=== PATIENT | female | born 1945 | race Caucasian/White ===

== ENCOUNTER 2024-07-13 11:33 | Emergency (ER) | payer MEDICARE, SELFPAY ==
[2024-07-13 11:35] VITALS: BP 131/53; PULSE 82; RESP 18; TEMP 36.5; O2SAT 96
[2024-07-13 11:37] VITALS: BMI 26.2
--- NOTE | 2024-07-13 11:49 | EKG12_ITS ---
Test Reason : SYNCOPE Blood Pressure : */* mmHG Vent. Rate : 74 BPM Atrial Rate : 74 BPM P-R Int : 184 ms QRS Dur : 106 ms QT Int : 404 ms P-R-T Axes : 22 -5 38 degrees QTcB Int : 448 ms Normal sinus rhythm Incomplete right bundle branch block Septal infarct , age undetermined ST & T wave abnormality, consider anterior ischemia Abnormal ECG Confirmed by REUBEN TEJEDA, ADRIEN ([id number]), design editor CHARANJIT URBAN ([id number]) on 07/18/2024 9:01:40 AM Referred By: ALEC Confirmed By: ADRIEN ALEXIS MD
--- NOTE | 2024-07-13 11:49 | EX.ED.DYSGE1 ---
HPI History of Present Illness Chief Complaint: Dizziness Detail of Chief Complaint: Dizziness and near syncope Informant: patient Narrative Narrative: Patient presents to the emergency department with an episode of dizziness and near syncope that occurred this morning. Patient states that she had been shopping with family members for several hours. She had just gotten to a new story been standing for about 10 minutes when she started feeling poorly. Describes feeling sweaty and feeling like her vision became cloudy. She felt like she was in a pass out but did not. She has not had episodes like this before. She denies recent illness. She denies chest pain or palpitations or racing heart. Patient feels markedly improved on arrival to the emergency department. [facility] Medical History (Updated 07/13/24 @ 14:[address] uRbina Johnson, DO) Breast cancer Home Medications ?Medication ?Instructions ?Recorded ?Last Taken ?Type albuterol sulfate 90 mcg/actuation 1 puff inhalation Q4H PRN 07/13/24 Unknown History aerosol inhaler shortness of breath or wheezing levothyroxine 112 mcg tablet 112 mcg PO MOTUWETHFRSA 07/13/24 07/13/24 History loratadine 10 mg tablet 10 mg PO DAILY PRN allergy symptoms 07/13/24 Unknown History (Allerclear) losartan 100 1 tab PO DAILY 07/13/24 07/12/24 History mg-hydrochlorothiazide 25 mg tablet vitamins A,C,E-pumh-tvnblz 4,296 1 cap PO BID 07/13/24 07/12/24 History mcg-226 mg-90 mg capsule (PreserVision AREDS) Allergy/AdvReac Type Severity Reaction Status Date / Time Sulfa (Sulfonamide Allergy Vomiting Verified 07/13/24 11:47 Antibiotics) Surgical History (Updated 07/13/24 @ 11:46 by Marilu John) History of appendectomy History of lumpectomy Social History Smoking Status: Former smoker ROS ROS ED Review of Systems ROS Unobtainable: other Constitutional Constitutional ED: Reports lethargy and other Details: Diaphoresis ; Denies chills, fever(s), sweats or weight loss Eyes Eyes: Denies blurry vision, change in vision or diplopia ENT ENT ED: Denies rhinorrhea or sore throat Cardiovascular Cardiovascular: Denies chest pain, orthopnea or racing heartbeat Respiratory/Chest Respiratory/Chest: Denies cough, dyspnea, dyspnea on exertion, orthopnea or sputum Gastrointestinal Gastrointestinal: Denies abdominal pain, diarrhea, nausea or vomiting Genitourinary Genitourinary ED: Denies dysuria, hematuria or urinary frequency Musculoskeletal Musculoskeletal: Denies arthralgias, back pain, myalgias or neck pain Integumentary Denies abscess, Abrasions or rash Neurologic Neurologic: Reports other Details: Dizziness, near syncope ; Denies headache(s) or weakness Psychiatric Psychiatric: Denies anxiety, depression or suicidal thoughts Endocrine Endocrinology: Denies polydipsia, polyphagia or polyuria Hematologic/Lymphatic Hematologic/Lymphatic: Denies easy bleeding, easy bruising or lymphadenopathy Allergic/Immunologic Allergic/Immunologic ED: Denies mouth swelling, tongue swelling or urticaria EXAM Physical Exam Const Vital Signs: 07/13/24 11:35 07/13/24 11:56 07/13/24 13:34 Temperature 97.7 F L Temperature Source Oral Pulse Rate 82 66 Pulse Rate [Lying] 74 Pulse Rate [Sitting (for 1 minute prior to obtaining)] 76 Pulse Rate [Standing (for 1 minute prior to obtaining)] 85 Respiratory Rate 18 15 Blood Pressure 131/53 H 162/54 H Blood Pressure [Lying] 147/55 H Blood Pressure [Sitting (for 1 minute prior to obtaining)] 136/59 H Blood Pressure [Standing (for 1 minute prior to obtaining)] 146/64 H Blood Pressure Mean 79 90 Blood Pressure Mean [Lying] 85 Blood Pressure Mean [Sitting (for 1 minute prior to obtaining)] 84 Blood Pressure Mean [Standing (for 1 minute prior to obtaining)] 91 Pulse Ox 96 97 Oxygen Delivery Method Room Air Room Air Positive well nourished and well developed General Appearance ED: well developed and NAD HEENT Reports TM's clear and moist mucous membranes normocephalic and atraumatic; Negative for trauma or tenderness Tympanic Membrane ED: Yes TM's clear Eyes PERRL and EOMs intact bilaterally General Eye ED: Negative for pale conjunctiva or scleral icterus Neck no lymphadenopathy, supple and no JVD General: Negative for tenderness Chest Wall inspection of chest normal and palpation of chest normal Chest: Negative for tenderness Resp normal respiratory effort and clear to auscultation bilaterally Effort and Inspection: Negative for respiratory distress or pain with movement Auscultation: Negative for rhonchi, wheezes or diminished lung sounds Cardio regular rate, regular rhythm, S1 normal heart sound, S2 normal heart sound and no murmurs Peripheral Pulses: pulses 2+ throughout GI normal to inspection, nondistended, normoactive bowel sounds, soft to palpation, non-tender, non-distended and no masses Back/Spine no CVA tenderness and no thoracic nor lumbar tenderness Extremity normal to inspection General Extremety ED: Negative for edema General Extremity: Negative for edema Neuro oriented x3, CN's II-XII intact bilaterally, no sensory deficits noted and gait normal Neuro Narrative: No focal deficits. No ataxia on exam. Sensorium / Orientation: awake, alert, oriented to person, oriented to place and oriented to time Motor Exam: strength 5/5 throughout and strength abnormal Psych mental status grossly normal Skin no rashes or lesions noted and no wounds MDM MDM MDM Narrative Medical decision making narrative: Patient presents with dizziness as well as diaphoresis and near syncope. Clinically looks well at this time. No prior episodes. In the differential would be cardiac dysrhythmia versus vasovagal near syncope or other etiology. IV line established. CBC with differential and a 10.0 with hemoglobin 13 and platelet count of 253. Chemistries unremarkable. First troponin was 6. Delta troponin was 8. Orthostatics were negative. At this point I suspect likely vasovagal near syncope. Patient will be discharged to home. Advised to follow-up with primary care physician 3 to 5 days. Lab Data Attestation: I reviewed the patient's lab results. Labs: Laboratory Results - last 24 hr 07/13/24 07/13/24 07/13/24 11:37 11:55 14:00 WBC 10.0 RBC 4.64 Hgb 13.0 Hct 39.3 MCV 84.7 MCH 28.0 MCHC 33.1 RDW Std Deviation 43.4 RDW Coeff of [place] 14.0 Plt Count 253 MPV 9.5 Immature Gran % (Auto) 0.500 Neut % (Auto) 70.1 H Lymph % (Auto) 19.7 [place] % (Auto) 5.5 Eos % (Auto) 3.6 Baso % (Auto) 0.6 Absolute Neuts (auto) 7.0 Absolute Lymphs (auto) 1.97 Nucleated RBC % 0 Sodium 136 Potassium 3.6 Chloride 97 L Carbon Dioxide 24.9 Anion Gap 14 BUN 17 Creatinine 1.10 Estim Creat Clear Calc 39.01 L Est GFR (MDRD) Non-Af 51 L BUN/Creatinine Ratio 15.5 Glucose 173 H Calcium 9.6 Troponin T High Sens 6 Troponin T Hi Sens 2 Hr 8 EKG Initial EKG: Attestation: I personally reviewed and interpreted this EKG as follows: Comments: Sinus rhythm with ventricular rate of [address] changes Discharge Plan Triage Chief Complaint: Dizziness ED Provider: Rubina Johnson Dx/Rx/DC Orders Clinical Impression: Near syncope Instructions: ED Near-Fainting, Uncertain Cause, ED Near-Fainting- Vagal Reaction Prescriptions: No Action albuterol sulfate 90 mcg/actuation HFA aerosol inhaler 1 puff INHALATION Q4H PRN (Reason: shortness of breath or wheezing) levothyroxine 112 mcg tablet 112 mcg PO MOTUWETHFRSA losartan-hydrochlorothiazide 100-25 mg tablet 1 tab PO DAILY PreserVision AREDS 4,296 mcg-226 mg-90 mg capsule 1 cap PO BID loratadine [Allerclear] 10 mg tablet 10 mg PO DAILY PRN (Reason: allergy symptoms) Primary Care Provider: Ifeoma Harris Referrals: Ifeoma Harris MD [Primary Care Provider] - 3-5 Days Print Language: Mohawk Disposition Disposition: Home, Self Care
[2024-07-13 11:56] VITALS: BP 136/59; BP 146/64; BP 147/55; PULSE 74; PULSE 76; PULSE 85
[2024-07-13] MEDS: 0.9% Normal Saline (1000mL) 1,000 ML 1000 ML IV (12:00)
[2024-07-13 12:19] LABS: Absolute Lymphocyte Count 1.97 X10^3/uL (0.83-4.51); Basophil# 0.06 X10^3/uL; Basophil% 0.6 % (0-1); Eosinophil# 0.36 X10^3/uL; Eosinophils% 3.6 % (0-5); Hematocrit 39.3 % (37-47); Lymphocyte # 1.97 X10^3/ul (0.83-4.51); Lymphocyte % 19.7 % (19-41); Mean Corp Hgb Conc 33.1 g/dL (32-36); Mean Corpuscular Volume 84.7 fL (81-99); Mean Platelet Vol. 9.5 fl (6.2-12.0); Monocyte# 0.55 X10^3/uL; Monocyte% 5.5 % (0-10); NRBC Flagged by Analyzer 0 % (0-5); Neutrophil % 70.1 % (47-70); Platelet Count 253 K/mm3 (150-450); RBC Distribution Width SD 43.4 fl (35.1-43.9); Red Blood Count 4.64 M/mm3 (4.2-5.4)
[2024-07-13 13:11] LABS: Anion Gap 14 (5-15); BUN 17 mg/dL (4-19); BUN/Creat Ratio 15.5 RATIO (10-20); Calcium,Total 9.6 mg/dL (7.6-11.0); Carbon Dioxide 24.9 mmol/L (21.0-32.0); Chloride 97 mmol/L (98-108); EST Glomerular Filtration Rate 51 (>60); Estimated Creatinine Clearance 39.01 ml/min (50-250); Glucose 173 mg/dL (70-99); Potassium 3.6 mmol/L (3.3-5.1); Sodium Level 136 mmol/L (133-145); Troponin T High Sensitivity 6 ng/L (<=14)
[2024-07-13 13:34] VITALS: BP 162/54; PULSE 66; RESP 15; O2SAT 97
[2024-07-13 14:39] LABS: Troponin T High Sens 2 HR 8 ng/L (<=14)
[2024-07-13 14:56] VITALS: BP 154/55; PULSE 65; RESP 14; TEMP 36.2; O2SAT 94
== END 2024-07-13 14:57 | disposition home or self-care (01) ==
PROVIDERS: Emergency Provider Emergency Medicine; PCP Family Medicine; Visit Provider Emergency Medicine
DX: R55 Syncope and collapse (principal); Z87.891 Personal history of nicotine dependence; R42 Dizziness and giddiness; Z79.890 Hormone replacement therapy; Z79.899 Other long term (current) drug therapy
CPT/HCPCS: 80048; 84484; 85025; 93005; 96360; 99285; A4216